=== PATIENT | female | born 1945 | race African-American/Black ===

== ENCOUNTER 2017-05-10 14:16 | Emergency (ER) | payer MEDICARE, BC ==
[2017-05-10] MEDS ORDERED: Adacel (T-DAP) 0.5 ML VIAL ONE (15:45)
--- NOTE | 2017-05-10 15:58 | CT ---
CT HEAD WITHOUT CONTRAST: Technique: Multiple axial tomograms were obtained through the head without IV enhancement. History: Evaluation of fall with injury to head. Comparison: 06-15-16 FINDINGS: Ventricles have normal size and position. There is no evidence of intracranial hemorrhage or mass. N o evidence of infarct. Sinuses and mastoids are well aerated. No evidence of fracture identified. IMPRESSION: No acute finding. POS: [facility]
[2017-05-10] MEDS ORDERED: Ibuprofen 600 MG TAB ONE (15:59)
--- NOTE | 2017-05-10 16:04 | CT ---
CT SCAN FACIAL BONES: 05/10/17 Multiple axial tomograms obtained through facial bones with multiplanar reconstruction. HISTORY: Fall with injury to face. FINDINGS: Nasal bones appear intact. The orbits appear intact. There has been prior sinus surgery with antral meatal windows. The paranasal sinuses are well aerated. There is a 1 cm mucous retention cyst in the floor of the right maxillary antrum. Maxilla appears intact. Zygoma appears intact. Mandible appear s intact. Degenerative changes at the left TMJ noted. IMPRESSION: No evidence of acute facial bone fractures. POS: [facility]
--- NOTE | 2017-05-10 16:13 | RAD ---
FOUR VIEWS LEFT KNEE: Date: 05-10-17 History: Left knee pain. Comparison: 03-05-16 FINDINGS: There has been interval post-surgical changes related to left total knee prosthesis. No hardware com plication is seen. No fracture or dislocation identified. No other osseous abnormality. IMPRESSION: 1. Left total knee prosthesis. 2. No acute osseous abnormality. POS: [facility]
--- NOTE | 2017-05-10 16:16 | CT ---
NONCONTRAST CT CERVICAL SPINE: Date: 05-10-17 History: Injury after a fall. Technique: Contiguous axial CT images were obtained of the cervical spine from the skull base to the level of the T2 vertebral body. Sagittal and coronal reformatted images are provided. FINDINGS: No fracture or subluxation is seen involving the cervical spine. There is straightening of the angie l cervical lordotic curvature which may be related to muscle spasm or positioning. Multilevel degene rative changes are seen in the cervical spine. There is minimal symmetric biapical pleural and parenchymal scarring. There is heterogeneity of the right lobe of the thyroid gland. There is suggestion of a small hypode nse nodule which cannot be further characterized on this exam. Prevertebral soft tissues are within normal limits. IMPRESSION: 1. Multilevel degenerative change of the cervical spine without evidence of fracture or subluxation. 2. Hypodense nodule right lobe of the thyroid gland which cannot be further characterized on this CT scan exam. POS: [facility]
--- NOTE | 2017-05-10 16:22 | RAD ---
PA AND LATERAL CHEST X-RAY 05/10/17 HISTORY: Nausea and vomiting. COMPARISON: 11/20/16 FINDINGS: The cardiac silhouette is magnified by projection. Pulmonary vasculature is within normal limits. Th e lungs are clear. Vascular calcifications seen in the thoracic aorta. IMPRESSION: No acute cardiopulmonary process. POS: [facility]
--- NOTE | 2017-05-10 16:39 | RAD ---
LEFT SHOULDER THREE VIEWS: 05/10/17 INDICATION: Pain. 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 There is punctate density underlying the lateral asp ect of the left acromion which can be seen in the setting of calcific tendinopathy. No fracture or dislocation identified. IMPRESSION: No acute osseous abnormality of the left shoulder. POS: [facility]
== END 2017-05-10 16:03 | disposition home or self-care (01) ==
LOC: SCSER 14:16
DX: S40.012A Contusion of left shoulder, initial encounter (principal); S80.02XA Contusion of left knee, initial encounter; S00.81XA Abrasion of other part of head, initial encounter; E03.9 Hypothyroidism, unspecified; K21.9 Gastro-esophageal reflux disease without esophagitis; J45.909 Unspecified asthma, uncomplicated; I11.0 Hypertensive heart disease with heart failure; I50.9 Heart failure, unspecified; W22.8XXA Striking against or struck by other objects, initial encounter
CPT/HCPCS: 70450; 70486; 71020; 72125; 90471; 90715

== ENCOUNTER 2017-10-28 22:20 | Emergency (ER) | payer MEDICARE, BC ==
[2017-10-28 23:20] LABS: Clarity Clear (Clear); Leukocyte Unable to Interpret (Negative); Nitrite Unable to Interpret (Negative); Protein, Urine (Dipstick) Unable to Interpret mg/dL (Neg-Trace)
[2017-10-28 23:21] LABS: Bilirubin Unable to Interpret (Negative); Blood, Urine Unable to Interpret (Negative); Glucose, Urine (Dipstick) Unable to Interpret mg/dL (Negative); Urobilinogen UNABLE TO INTERPRET mg/dL (0.2-1.0)
[2017-10-28 23:22] LABS: pH, Urine 5.6 (5.0-9.0)
[2017-10-28 23:25] LABS: Bacteria/HPF None Seen HPF (None Seen); Hyaline Casts/LPF 0-3 HYALINE CAST LPF (0-3 Hyaline); RBC/HPF 0-3 HPF (0-3); Squamous Epithelial None Seen HPF (0-3); WBC/HPF None Seen HPF (0-3)
[2017-10-29] MEDS ORDERED: Oxybutynin 5 MG TAB PO SCH (02:00)
[2017-10-29] MEDS ORDERED: Ketorolac Tromethamine 30 MG/ML VIAL ONE (02:57)
== END 2017-10-29 03:20 | disposition home or self-care (01) ==
LOC: ERS 22:20
DX: R30.0 Dysuria (principal); E03.9 Hypothyroidism, unspecified; I11.0 Hypertensive heart disease with heart failure; I50.9 Heart failure, unspecified; J45.909 Unspecified asthma, uncomplicated; K21.9 Gastro-esophageal reflux disease without esophagitis
CPT/HCPCS: 81003; 81015; 96372; J1885

== ENCOUNTER 2017-11-03 08:30 | Outpatient (CLI) | payer MEDICARE, BC ==
[2017-11-03 10:11] LABS: Hemoglobin 11.8 g/dL (12.0-16.0); Mean Corpuscular HGB CONC 31.3 g/dL (32.0-36.0); Mean Corpuscular Hemoglobin 25.7 pg (27.0-31.0); Mean Corpuscular Volume 82.1 fl (81.0-99.0); Mean Platelet Volume 7.7 fL (7.4-10.4); Platelet Count 318 thou/uL (130-400); RBC Distribution Width 14.2 % (11.5-14.5); White Blood Cell (WBC) Count 5.5 thou/uL (4.8-10.8)
[2017-11-03 10:27] LABS: INR-International Normal Ratio 1.1; Prothrombin Time 14.7 SEC (12.0-14.7)
[2017-11-03 10:28] LABS: Anion Gap 11 mmol/L (10-20); BUN (Urea Nitrogen) 20 mg/dL (9.8-20.1); Calc. Creatinine Clearance 0 mL/min (70-130); Calcium 9.1 mg/dL (7.8-10.44); Carbon Dioxide 30 mmol/L (23-31); Chloride 103 mmol/L (98-107); Estimated GFR-MDRD Greater than 90; Glucose 84 mg/dL (83-110); Potassium 4.1 mmol/L (3.5-5.1); Sodium 140 mmol/L (136-145)
--- NOTE | 2017-11-04 06:23 | EKG ---
Test Reason : Blood Pressure : / mmHG Vent. Rate : 054 BPM Atrial Rate : 054 BPM P-R Int : 204 ms QRS Dur : 074 ms QT Int : 438 ms P-R-T Axes : 053 056 037 degrees QTc Int : 415 ms Sinus bradycardia Cannot rule out Anteroseptal infarct (cited on or before 05-MAY-2012)(Doubtful) Abnormal ECG When compared with ECG of 20-NOV-2016 08:31, Questionable change in initial forces of Anterior leads Confirmed by MELISSA APONTE ([id number]) on 11/04/2017 6:12:14 AM Referred By: ANIL Confirmed By:MELISSA APONTE
== END 2017-11-03 08:31 | disposition home or self-care (01) ==
LOC: LABBT 08:30
PROVIDERS: ATTEND Urology
DX: Z01.818 Encounter for other preprocedural examination (principal); N35.9 Urethral stricture, unspecified; R31.29 Other microscopic hematuria
CPT/HCPCS: 80048; 85027; 85610; 85730; 93005; 93010

== ENCOUNTER 2017-11-04 07:58 | Outpatient (CLI) | payer MEDICARE, BC ==
--- NOTE | 2017-11-04 09:54 | ULT ---
RENAL ULTRASOUND: COMPARISON: None. HISTORY: Bladder spasms and frequent urination for a month. Microhematuria. TECHNIQUE: Multiplanar, escalona scale, and color Doppler images were obtained in a renal ultrasound. FINDINGS: The kidneys are normal in echogenicity without focal lesions, hydronephrosis, or calculi and measure 10.7 and 11.2 cm in length on the right and left, respectively. Limited visualization of the urinary bladder is unremarkable. IMPRESSION: Unremarkable renal ultrasound. POS: [facility]
== END 2017-11-04 07:59 | disposition home or self-care (01) ==
LOC: ULT 07:58
PROVIDERS: ATTEND Urology
DX: R31.9 Hematuria, unspecified (principal)
CPT/HCPCS: 76770

== ENCOUNTER 2017-11-08 08:51 | Day surgery (SDC) | payer MEDICARE, BC ==
[2017-11-03 08:37] VITALS: BMI 36.9
[2017-11-08] MEDS ORDERED: cefTRIAXone\\ROCEPHIN 2 GM in Sodium Chloride 0.9% 100 ML IVPB SCH (09:15)
[2017-11-08] MEDS ORDERED: Ondansetron ODT 4 MG TAB ONE (10:26)
[2017-11-08] MEDS ORDERED: Iothalamate Meglumine 60% 50 ML VIAL FS ONE (11:14)
[2017-11-08] MEDS ORDERED: Fentanyl 100 MCG/2 ML VIAL ONE (11:18)
[2017-11-08] MEDS ORDERED: Famotidine/PF 20 mg/2ml Vial ONE (11:18)
--- NOTE | 2017-11-08 12:27 | RAD ---
RETROGRADE IVP: COMPARISON: None. HISTORY: Microhematuria. FINDINGS/IMPRESSION: Multiple limited intraoperative fluoroscopic views from a retrograde IVP were submitted for interpret ation. No calcifications are seen on the metal worker film. Contrast is eventually instilled into both kyle al collecting systems. No filling defects are seen. No hydronephrosis is seen. POS: [facility]
[2017-11-08] MEDS ORDERED: Ondansetron HCl/PF 4 MG/2 ML Vial ONE (16:02)
[2017-11-08] MEDS ORDERED: Glycopyrrolate 0.2 MG/ML 5 ML SYRINGE ONE (16:02)
[2017-11-08] MEDS ORDERED: PROPOFOL 200 MG/20 ML VIAL ONE (16:02)
--- NOTE | 2017-11-09 09:06 | OP ---
DATE OF PROCEDURE: 11/08/2017 PREOPERATIVE DIAGNOSES: Microscopic hematuria and history of urethral stenosis, and some lower urina ry tract symptoms. PROCEDURE PERFORMED: Cystoscopy and bilateral retrograde and urethral dilatation. SURGEON: Dr. Lefty Kirkpatrick. ANESTHETIC: General. ESTIMATED BLOOD LOSS: Minimal. FINDINGS: She had mild urethral stenosis 17 Bulgarian sheath passed easily, which was gently dila italo to 28-Bulgarian sheath. The bladder showed no tumor, foreign body, or stone. Retrograde studies we re normal. She has a fairly well supported bladder neck. There is no urethral mass or diverticulum. OPERATIVE TECHNIQUE: After obtaining written and verbal consent from the patient after receiving IV antibiotics because of knee replacement. She was taken the operative suite. She was placed i n the supine position on the treatment table. PlexiPulses were placed on her lower extremities and t urned on. She was given a general anesthetic and initially in oral obturator and then switched to en dotracheal intubation as she was coughing with the obturator in. She was then placed in the dorsal l ithotomy position and sterilely prepped and draped. Cystoscopy was initially attempted with a 17-Jatinder nch sheath and went fairly easily through the urethra. The bladder was filled and emptied 3 times. It was examined with both a 30 and the 70-degree lenses. We then went ahead and gently dilated to 28 Bulgarian with female sounds. We then brought in a 22-Bulgarian sheath and A landscape horticulture instructor KUB was taken with the fluoroscopy unit. We then did bilateral retrograde studies using a 5-Bulgarian cone tip catheter, inje cting contrast about 12 mL up the right ureter and then about 12 mL of the left including drainage fr om a few minutes later. There were no persistent abnormalities or filling defects or areas of obstru ction or extravasation noted. At this point, the bladder was drained, the instruments were removed. The patient was awakened and extubated and taken by stretcher to the recovery room.
== END 2017-11-08 15:30 | disposition home or self-care (01) ==
LOC: SDC 08:51
PROVIDERS: ATTEND Urology
PROC: 0T7D8ZZ Dilation of Urethra, Via Natural or Artificial Opening Endoscopic (ICD-10-PCS; principal; 2017-11-08)
DX: N35.9 Urethral stricture, unspecified (principal); R31.29 Other microscopic hematuria; R39.9 Unspecified symptoms and signs involving the genitourinary system; Z88.5 Allergy status to narcotic agent
CPT/HCPCS: 74420; J0696; J2405; J2704; J3010; J3370; J7050; Q0162; Q9961; S0028

== ENCOUNTER 2018-03-23 06:57 | Outpatient (CLI) | payer MEDICARE, BC | END 2018-03-23 06:58 | disposition home or self-care (01) | LOC: BICULT 06:57 | PROVIDERS: ATTEND Otolaryngology Plastic Surgery within the Head & Neck | DX: E04.1 Nontoxic single thyroid nodule (principal); R13.13 Dysphagia, pharyngeal phase; E07.9 Disorder of thyroid, unspecified | CPT/HCPCS: 76536 ==

== ENCOUNTER 2018-04-04 08:42 | Outpatient (CLI) | payer MEDICARE, BC ==
--- NOTE | 2018-04-05 15:34 | RAD ---
MODIFIED BARIUM SWALLOW IN THE PRESENCE SPEECH PATHOLOGIST: 04/05/18 HISTORY: Dysphagia unspecified. Feeding difficulties. EXPOSURE: 31.45 mGy. FINDINGS: The patient was administered puree, thin liquid, mechanical soft and regular texture consistencies. T he patient was also administered a barium tablet. There is no evidence of penetration or aspiration. Please refer to speech pathologist report for feed ing recommendations. Speech pathologist states that the patient had a choking sensation and persistent pressure. Cervical esophagram can be performed nonemergently to better evaluate the cervical esophagus. IMPRESSION: As above. POS: [facility]
== END 2018-04-04 08:43 | disposition home or self-care (01) ==
PROVIDERS: ATTEND Otolaryngology Plastic Surgery within the Head & Neck
DX: R13.10 Dysphagia, unspecified (principal); R63.3 Feeding difficulties; R09.89 Other specified symptoms and signs involving the circulatory and respiratory systems
CPT/HCPCS: 74230; G8996-GN-CI; G8997-GN-CI; G8998-GN-CI

== ENCOUNTER 2018-04-14 07:42 | Outpatient (CLI) | payer MEDICARE, BC ==
--- NOTE | 2018-04-14 11:04 | RAD ---
BARIUM SWALLOW: DATE: 04/14/18. COMPARISON: None. HISTORY: Dysphagia. FINDINGS: A double-contrast barium esophagram is performed. There are numerous tertiary contractions noted during this examination involving the entirety of the esophagus, most prominent in the mid and distal esophagus. There is a prominent cricopharyngeal bar with a small Zenker's diverticulum noted on lateral imaging. There is a small sliding-type hiatal hernia. The patient ingested a barium tablet which traverses th e gastroesophageal junction without delay. Secondary to tertiary contractions, peristalsis of the ta blet was somewhat delayed. No mucosal mass lesion. Destination Imagination Coordinator imaging demonstrates no evidence for acute cardiopulmonary disease. IMPRESSION: Numerous tertiary contractions are noted within the esophagus with slight discoordination of transit of the barium tablet. Small sliding-type hiatal hernia. Prominent cricopharyngeal bar with small Ze nker's diverticulum. POS: [facility]
== END 2018-04-14 07:43 | disposition home or self-care (01) ==
LOC: RAD 07:42
PROVIDERS: ATTEND Otolaryngology Plastic Surgery within the Head & Neck
DX: E04.1 Nontoxic single thyroid nodule (principal); R13.13 Dysphagia, pharyngeal phase; K22.5 Diverticulum of esophagus, acquired; K44.9 Diaphragmatic hernia without obstruction or gangrene; K22.9 Disease of esophagus, unspecified
CPT/HCPCS: 74220

== ENCOUNTER 2018-11-28 14:08 | Outpatient (CLI) | payer MEDICARE, BC ==
--- NOTE | 2018-11-28 15:32 | MMO ---
Bilateral MAMMO Bilat Screen [facility]DI+ELISSA. CLINICAL HISTORY: Patient is 73 years old and is seen for screening. The patient has the following family history of breast cancer: mother, at age 83. The patient has no personal history of cancer. The patient has a history of bilateral Cyst Aspiration in ? - benign. VIEWS: The views performed were: bilateral craniocaudal with tomosynthesis and bilateral mediolateral oblique with tomosynthesis. FILMS COMPARED: The present examination has been compared to prior imaging studies performed at [facility] on 04/29/2004, 05/12/2004, 07/01/2010, 11/11/2011 and 12/16/2012. MAMMOGRAM FINDINGS: There are scattered fibroglandular densities. Finding 1: There are stable benign appearing densities seen in both breasts. Finding 2: There are stable benign appearing calcifications seen in both breasts. There are no suspicious masses, suspicious calcifications, or new areas of architectural distortion. IMPRESSION: THERE IS NO MAMMOGRAPHIC EVIDENCE OF MALIGNANCY. A ROUTINE FOLLOW-UP MAMMOGRAM IN 1 YEAR IS RECOMMENDED. THE RESULTS OF THIS EXAM WERE SENT TO THE PATIENT. ACR BI-RADS Category 2 - Benign finding MAMMOGRAPHY NOTE: 1. A negative mammogram report should not delay a biopsy if a dominant of clinically suspicious mass is present. 2. Approximately 10% to 15% of breast cancers are not detected by mammography. 3. Adenosis and dense breasts may obscure an underlying neoplasm.
== END 2018-11-28 14:09 | disposition home or self-care (01) ==
LOC: BICMAMMO 14:08
PROVIDERS: ATTEND Internal Medicine
DX: Z12.31 Encounter for screening mammogram for malignant neoplasm of breast (principal); Z80.3 Family history of malignant neoplasm of breast
CPT/HCPCS: 77063; 77067

== ENCOUNTER 2019-01-03 07:24 | Outpatient (CLI) | payer MEDICARE, BC ==
--- NOTE | 2019-01-03 08:38 | CT ---
CT abdomen and pelvis with IV and oral contrast HISTORY: Nausea. Periumbilical pain. Altered bowel function. COMPARISON: 06/25/2012. FINDINGS: Minimal atelectasis at the posterior lung bases. Cysts within the liver and kidneys are sta ble. Degenerative changes lumbar spine. Calcification throughout the arterial structures. Appendix is not inflamed. No evidence of bowel obstruction. Extensive diverticula arise from the colo n. No associated inflammation. Deep within the left posterior left side of the pelvis, just inside the osseous structures at the lev el of the posterior acetabulum, a bilobed well-circumscribed cystic lesion is 2.8 cm length by 1.9 cm width by 1.8 cm greatest depth. There is a small associated dystrophic calcification. No invasion of the adjacent structures. No free fluid is apparent. While this lesion demonstrates no aggressive characteristics, it was not present on the prior exam from 2011. IMPRESSION: Diverticulosis. No evidence of diverticulitis. No evidence of bowel obstruction or inflam mation. New bilobed benign-appearing cystic lesion within the left lower posterior pelvis. While it demonstra bryson no aggressive characteristics, it is new since the 2012 study. Follow-up is therefore warranted. Please consider CT pelvis in 9-12 months to evaluate for stability. Atherosclerosis.
== END 2019-01-03 07:25 | disposition home or self-care (01) ==
LOC: BICCT 07:24
PROVIDERS: ATTEND Physician Assistant Medical
DX: K21.9 Gastro-esophageal reflux disease without esophagitis (principal); R10.33 Periumbilical pain; R11.0 Nausea; R19.4 Change in bowel habit; K57.90 Diverticulosis of intestine, part unspecified, without perforation or abscess without bleeding; I70.90 Unspecified atherosclerosis
CPT/HCPCS: 74177

== ENCOUNTER 2019-03-06 08:27 | Outpatient (CLI) | payer MEDICARE, BC ==
--- NOTE | 2019-03-06 09:21 | CT ---
EXAM: CT angiogram abdomen with IV contrast and 3-D reconstructions PROVIDED CLINICAL HISTORY: Having abdominal pain for months. Evaluate mesenteric arteries. COMPARISON: CT abdomen and pelvis on 01/03/2019 FINDINGS: There is bibasilar atelectasis. Calcified lymph node is seen in a left periaortic location the lower mediastinum. The heart is mildly enlarged. Hypodense hepatic lesions are again seen scattered throughout each lobe of the liver which were also seen on a prior CT exam in 2012 and are likely related to multiple hepatic cysts. Subcentimeter too small to characterize hypodense lesions are again seen in each kidney statistically likely representing cysts. The spleen and pancreas demonstrate a normal CT appearance. The adrenal glands are mildly thickened bilaterally which is a symmetric finding, and this is also st able compared to prior studies and likely due to adrenal hyperplasia. No adrenal nodule is seen. Vascular calcifications are seen in the abdominal aorta and involving the visualized iliac arteries. The celiac artery has a downgoing trajectory likely due to arcuate ligament with mild narrowing of the proximal celiac artery. The superior mesenteric artery is widely patent. The origin of the VAL is not well visualized due to dense vascular calcifications in the abdominal aorta but otherwise appears grossly patent. There is a single patent left renal artery. There is a single right renal artery with calcified ather osclerotic plaque present resulting in at least mild narrowing, but the origin and proximal right renal artery are partially obscured due to dense vascular calcifications. Dense vascular calcific lesions involve the common iliac arteries without significant focal stenosis appreciated. There is colonic diverticulosis seen diffusely throughout the visualized colon. The visualized ascend ing colon as well as transverse colon demonstrate what appears to be wall thickening, but the colon is completely decompressed in these regions which may account for this finding. No pericolonic inflam matory changes are seen. Loops of small bowel are normal in caliber. Small fat-containing umbilical hernia is present. Degenerative changes are seen in the spine. IMPRESSION: 1. Widely patent superior mesenteric artery. 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 The origin of the VAL is obscured due to vascular calcifications in the abdominal aorta. 2. Vascular calcifications in the proximal right renal artery limiting evaluation. Left renal artery is patent. 3. Mild cardiomegaly. 4. Multiple hepatic cysts. 5. Subcentimeter too small to characterize hypodense bilateral renal lesions statistically likely rep resenting cysts. 6. Colonic diverticulosis. There is suggested thickening of the clark of the ascending and transverse colon, but this is thought to most likely be related to incomplete distention as opposed to colitis. No pericolonic inflammatory changes are present.
[2019-03-06] MEDS ORDERED: ISOVUE-370 76%-LOCM 1 ML ONE (16:23)
== END 2019-03-06 08:28 | disposition home or self-care (01) ==
LOC: BICCT 08:27
PROVIDERS: ATTEND Internal Medicine Gastroenterology
DX: R10.33 Periumbilical pain (principal); R10.13 Epigastric pain; I70.0 Atherosclerosis of aorta; N28.89 Other specified disorders of kidney and ureter; I51.7 Cardiomegaly; K76.89 Other specified diseases of liver; K57.30 Diverticulosis of large intestine without perforation or abscess without bleeding; R93.421 Abnormal radiologic findings on diagnostic imaging of right kidney; R93.422 Abnormal radiologic findings on diagnostic imaging of left kidney
CPT/HCPCS: 74175; Q9966

== ENCOUNTER 2019-05-30 07:38 | Emergency (ER) | payer MEDICARE, BC ==
[2019-05-30] MEDS ORDERED: Ketorolac Tromethamine 30 MG/ML VIAL ONE (08:23)
[2019-05-30] MEDS ORDERED: Cyclobenzaprine 10 MG TAB ONE (08:23)
--- NOTE | 2019-05-30 09:46 | CT ---
CERVICAL SPINE CT: Date: 05/30/19 CLINICAL HISTORY: Emergency exam, neck pain. FINDINGS: Moderate multilevel degenerative change of the cervical spine is present. there is reversal of normal cervical curvature, with focal kyphosis centered at the C4 level. Multilevel disc osteophyte complex formation, as well as calcified disc bulges and disc protrusions are present, resulting in multileve l moderate central canal stenosis. There is multilevel uncinate process and facet hypertrophy resulti ng in osseous compromise of the neural foramina. Findings are limited on the basis of noncontrast CT imaging. No acute craniocervical distraction injury. No fracture of the cervical spine visualized. Incidental note of hypertrophy and heterogeneity of the right thyroid lobe and absence of a visualized left thyr oid lobe. IMPRESSION: Multilevel prominent degenerative change throughout the cervical spine. No acute fracture visualized. POS: [facility]
== END 2019-05-30 09:36 | disposition home or self-care (01) ==
LOC: ERS 07:38
DX: M54.2 Cervicalgia (principal); E03.9 Hypothyroidism, unspecified; K21.9 Gastro-esophageal reflux disease without esophagitis; J45.909 Unspecified asthma, uncomplicated; I11.0 Hypertensive heart disease with heart failure; I50.9 Heart failure, unspecified; Z79.899 Other long term (current) drug therapy; Z79.51 Long term (current) use of inhaled steroids
CPT/HCPCS: 72126; 96372; J1885

== ENCOUNTER 2019-08-03 09:46 | Outpatient (CLI) | payer MEDICARE, BC ==
[2019-08-03 11:14] LABS: #Eosinphils 0.1 thou/uL (0.0-0.7); #Lymphocytes 1.1 thou/uL (1.20-3.40); #Monocytes 0.5 thou/uL (0.11-0.59); #Neutrophils 3.2 thou/uL (1.40-6.50); %Basophils 0.5 % (0.0-1.0); %Eosinophils 1.7 % (0.0-10.0); %Lymphocytes 22.5 % (21.0-51.0); %Neutrophils 65.2 % (42.0-75.0); Mean Corpuscular HGB CONC 31.3 g/dL (32.0-36.0); Mean Corpuscular Hemoglobin 25.3 pg (27.0-31.0); Mean Platelet Volume 7.8 fL (7.4-10.4); Platelet Count 321 thou/uL (130-400); RBC Distribution Width 12.8 % (11.5-14.5); Red Blood Cell (RBC) Count 4.74 mill/uL (4.20-5.40); White Blood Cell (WBC) Count 4.9 thou/uL (4.8-10.8)
[2019-08-03 11:33] LABS: ALT (SGPT) 9 U/L (8-55); AST (SGOT) 13 U/L (5-34); Albumin 3.8 g/dL (3.4-4.8); Alkaline Phosphatase 97 U/L (40-110); Anion Gap 12 mmol/L (10-20); BUN (Urea Nitrogen) 17 mg/dL (9.8-20.1); Bilirubin, Total 0.2 mg/dL (0.2-1.2); Calc. Creatinine Clearance 0 mL/min (70-130); Carbon Dioxide 31 mmol/L (23-31); Chloride 103 mmol/L (98-107); Estimated GFR-MDRD 88; Globulin 2.9 g/dL (2.4-3.5); Glucose 92 mg/dL (83-110); Potassium 3.9 mmol/L (3.5-5.1); Protein, Total 6.7 g/dL (6.0-8.3); Sodium 142 mmol/L (136-145)
== END 2019-08-03 09:47 | disposition home or self-care (01) ==
LOC: LABBT 09:46
PROVIDERS: ATTEND Internal Medicine Cardiovascular Disease
DX: Z01.812 Encounter for preprocedural laboratory examination (principal); R07.9 Chest pain, unspecified
CPT/HCPCS: 80053; 85025

== ENCOUNTER 2019-08-07 05:39 | Day surgery (SDC) | payer MEDICARE, BC ==
[2019-08-03 10:13] VITALS: BMI 37.9
[2019-08-07] MEDS ORDERED: Diazepam 5 MG TAB ONE (06:15)
[2019-08-07] MEDS ORDERED: Heparin 10,000 UNITS/1 ML VIAL ONE (06:39)
[2019-08-07] MEDS ORDERED: Heparin (Artline) 1,000 ML ONE (06:39)
[2019-08-07] MEDS ORDERED: Verapamil 5 MG/2 ML VIAL ONE (06:39)
[2019-08-07] MEDS ORDERED: Nitroglycerin 100MG/250ML BOT 250 ML ONE (06:39)
[2019-08-07] MEDS ORDERED: Lidocaine 1% (PF) 30 ML VIAL ONE (06:41)
[2019-08-07] MEDS ORDERED: Midazolam HCl 2 mg/2 ml Vial ONE (07:15)
[2019-08-07] MEDS ORDERED: Fentanyl 100 MCG/2 ML VIAL ONE (07:16)
[2019-08-07] MEDS ORDERED: Iopamidol 370 76% 100 ML VIAL ONE (11:23)
== END 2019-08-07 10:58 | disposition home or self-care (01) ==
LOC: CCL 05:39
PROVIDERS: ATTEND Internal Medicine Cardiovascular Disease
PROC: 4A023N7 Measurement of Cardiac Sampling and Pressure, Left Heart, Percutaneous Approach (ICD-10-PCS; principal; 2019-08-07)
PROC: B2111ZZ Fluoroscopy of Multiple Coronary Arteries using Low Osmolar Contrast (ICD-10-PCS; 2019-08-07)
PROC: B2151ZZ Fluoroscopy of Left Heart using Low Osmolar Contrast (ICD-10-PCS; 2019-08-07)
DX: I25.10 Atherosclerotic heart disease of native coronary artery without angina pectoris (principal); I11.0 Hypertensive heart disease with heart failure; I50.32 Chronic diastolic (congestive) heart failure; I87.2 Venous insufficiency (chronic) (peripheral); G47.33 Obstructive sleep apnea (adult) (pediatric); Z79.899 Other long term (current) drug therapy; Z88.5 Allergy status to narcotic agent; Z99.89 Dependence on other enabling machines and devices
CPT/HCPCS: 93458; 99152; C1769; J1644; J2001; J2250; J3010; Q9967

== ENCOUNTER 2019-10-24 01:44 | Emergency (ER) | payer MEDICARE, BC ==
[2019-10-24 02:20] LABS: #Basophils 0.1 thou/uL (0.0-0.2); #Eosinphils 0.2 thou/uL (0.0-0.7); #Lymphocytes 2.1 thou/uL (1.20-3.40); #Monocytes 0.8 thou/uL (0.11-0.59); #Neutrophils 3.9 thou/uL (1.40-6.50); %Basophils 1.2 % (0.0-1.0); %Eosinophils 2.4 % (0.0-10.0); %Lymphocytes 29.8 % (21.0-51.0); %Monocytes 11.1 % (0.0-10.0); %Neutrophils 55.5 % (42.0-75.0); Hemoglobin 11.4 g/dL (12.0-16.0); Mean Corpuscular HGB CONC 32.7 g/dL (32.0-36.0); Mean Corpuscular Hemoglobin 26.8 pg (27.0-31.0); Mean Corpuscular Volume 81.9 fL (78.0-98.0); Mean Platelet Volume 7.7 fL (7.4-10.4); Platelet Count 343 thou/uL (130-400); RBC Distribution Width 13.7 % (11.5-14.5); Red Blood Cell (RBC) Count 4.26 mill/uL (4.20-5.40)
[2019-10-24 02:46] LABS: ALT (SGPT) 9 U/L (8-55); AST (SGOT) 14 U/L (5-34); Albumin 3.6 g/dL (3.4-4.8); Alkaline Phosphatase 87 U/L (40-110); Anion Gap 11 mmol/L (10-20); BUN (Urea Nitrogen) 18 mg/dL (9.8-20.1); Bilirubin, Total 0.2 mg/dL (0.2-1.2); Calc. Creatinine Clearance 0 mL/min (70-130); Carbon Dioxide 31 mmol/L (23-31); Chloride 102 mmol/L (98-107); Estimated GFR-MDRD 53; Globulin 3.1 g/dL (2.4-3.5); Glucose 95 mg/dL (83-110); Potassium 3.4 mmol/L (3.5-5.1); Protein, Total 6.7 g/dL (6.0-8.3); Sodium 141 mmol/L (136-145)
--- NOTE | 2019-10-24 07:41 | RAD ---
PORTABLE CHEST 1 VIEW: DATE: 10/24/2019. TIME: 2:12 AM. HISTORY: Dizziness, low back pressure. COMPARISON: 11/20/2016. FINDINGS/IMPRESSION: The heart size is enlarged. The aorta is tortuous. There is mild prominence of the pulmonary vascul arity without lobar consolidation, pneumothoraces, or large effusions. POS: [facility]
== END 2019-10-24 05:31 | disposition home or self-care (01) ==
LOC: ERS 01:44
DX: R42 Dizziness and giddiness (principal); E03.9 Hypothyroidism, unspecified; K21.9 Gastro-esophageal reflux disease without esophagitis; J45.909 Unspecified asthma, uncomplicated; I11.0 Hypertensive heart disease with heart failure; I50.9 Heart failure, unspecified; Z79.899 Other long term (current) drug therapy
CPT/HCPCS: 71045; 80053; 85025; 93005; 96360; 96361

== ENCOUNTER 2019-11-30 20:56 | Observation (INO) | payer MEDICARE, BC ==
[2019-11-30 21:22] LABS: #Basophils 0.1 thou/uL (0.0-0.2); #Eosinphils 0.1 thou/uL (0.0-0.7); #Lymphocytes 1.7 thou/uL (1.20-3.40); #Monocytes 0.6 thou/uL (0.11-0.59); #Neutrophils 5.3 thou/uL (1.40-6.50); %Basophils 0.8 % (0.0-1.0); %Eosinophils 1.8 % (0.0-10.0); %Lymphocytes 21.9 % (21.0-51.0); %Neutrophils 67.5 % (42.0-75.0); Mean Corpuscular HGB CONC 31.2 g/dL (32.0-36.0); Mean Corpuscular Volume 83.2 fL (78.0-98.0); Mean Platelet Volume 7.8 fL (7.4-10.4); Platelet Count 359 thou/uL (130-400); RBC Distribution Width 13.7 % (11.5-14.5); Red Blood Cell (RBC) Count 4.62 mill/uL (4.20-5.40); White Blood Cell (WBC) Count 7.9 thou/uL (4.8-10.8)
[2019-11-30 21:47] LABS: ALT (SGPT) 10 U/L (8-55); AST (SGOT) 13 U/L (5-34); Albumin 3.9 g/dL (3.4-4.8); Alkaline Phosphatase 96 U/L (40-110); Anion Gap 13 mmol/L (10-20); BUN (Urea Nitrogen) 17 mg/dL (9.8-20.1); Bilirubin, Total 0.2 mg/dL (0.2-1.2); Calc. Creatinine Clearance 0 mL/min (70-130); Calcium 9.2 mg/dL (7.8-10.44); Carbon Dioxide 28 mmol/L (23-31); Chloride 102 mmol/L (98-107); Estimated GFR-MDRD 60; Glucose 94 mg/dL (83-110); Potassium 3.8 mmol/L (3.5-5.1); Protein, Total 6.9 g/dL (6.0-8.3); Sodium 139 mmol/L (136-145)
[2019-11-30] MEDS ORDERED: Nitroglycerin 0.4 MG TAB (25 Tab Bottle) PO PRN (23:44)
[2019-11-30] MEDS ORDERED: Sodium Chloride 0.9% 1,000 ML IV SCH (23:45)
--- NOTE | 2019-12-01 00:07 | PDOC.HHP ---
Hospitalist HPI - History of Present Illness Chest Pain History of Present Illness: Patient reports having intermittent chest pain since she woke up this morning while she was in bed. Has not taken anything for it. She denies any associated nausea/vomiting, diaphoresis or sob. Denies any cough. Her eyes have been itching due to allergies. Denies any fever. Pain is non-radiating, states it is a 7/10 in severity. She opted to come in due to concern for her heart. 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 She had a cath in 07/2019 which showed 30% stenosis at distal LAD, mid RCA and distal RCA. ED Course: EKG showed NSR. HR 74. No ST changes. initial trop negative. CXR done, per Dr. Omalley unremarkable. Low grade temp on arrival (99.0). Hospitalist ROS - Review of Systems Constitutional: denies: fever, chills, sweats, weakness, malaise, other Eyes: denies: pain, vision change, conjunctivae inflammation, eyelid inflammation, redness, other ENT: denies: ear pain, ear discharge, nose pain, nose discharge, nose congestion , mouth pain, mouth swelling, throat pain, throat swelling, other Respiratory: denies: cough, dry, shortness of breath, hemoptysis, SOB with excertion, pleuritic pain, sputum, wheezing, other Cardiovascular: reports: chest pain. denies: palpitations, orthopnea, paroxysmal noc. dyspnea, edema, light headedness, other Gastrointestinal: denies: nausea, vomiting, abdominal pain, diarrhea, constipation, melena, hematochezia, other Genitourinary: denies: dysuria, frequency, incontinence, hematuria, retention, other Musculoskeletal: reports: leg pain (chronic leg swelling, intermittent), foot pain (reports recent issues with cramping in both feet.). denies: neck pain, shoulder pain, arm pain, back pain, hand pain, other Skin: denies: rash, lesions, aydee, bruising, other Neurological: denies: weakness, numbness, incoordination, change in speech, confusion, seizures, other - Medication Medications: ALLERGIES: Codeine sulfate. CURRENT MEDICATIONS: 1. Benicar. 2. Potassium. 3. Amlodipine. 4. Synthroid. 5. HCTZ. 6. Albuterol. 7. Vitamin D3. Hospitalist History - Past Medical History Cardiac: reports: CHF, HTN Pulmonary: reports: asthma Gastrointestinal: reports: Diverticulosis, GERD Endocrine: reports: Hypothyroidism - Past Surgical History Past Surgical History: reports: Hysterectomy, Total Knee Replacement (right knee ), Tonsillectomy, Other (Partial thyroidectomy Bilateral knee surgery Bilateral foot surgery Sinus surgery Bladder surgery) - Family History Family History: reports: no pertinent history - Social History Smoking Status: Never smoker Alcohol: reports: None Drugs: reports: none Living Situation: With Family Activity level: independent ambulation - Exam General Appearance: NAD Eye: PERRL, anicteric sclera ENT: normocephalic atraumatic, moist mucosa Neck: supple, no lymphadenopathy Heart: RRR, no murmur, normal peripheral pulses Heart - other findings: reproducible pain to left sternal border with palpation Respiratory: CTAB, no wheezes, no rales, no ronchi, normal chest expansion, no tachypnea Gastrointestinal: soft, non-tender, non-distended, normal bowel sounds, no guarding, no rigidity Extremities: no edema Extremities - other findings: bilateral leg swelling L>R Skin: normal turgor, no rashes Neurological: cranial nerve grossly intact, normal sensation to touch, no weakness Musculoskeletal: normal tone, normal strength, no muscle wasting Psychiatric: normal affect, normal behavior, A&O x 3 Hospitalist Results - Labs Result Diagrams: 11/30/19 21:12 11/30/19 21:12 Lab results: WBC 7.9 thou/uL (4.8-10.8) 11/30/19 21:12 Hgb 12.0 g/dL (12.0-16.0) 11/30/19 21:12 Hct 38.5 % (36.0-47.0) 11/30/19 21:12 MCV 83.2 fL (78.0-98.0) 11/30/19 21:12 Plt Count 359 thou/uL (130-400) 11/30/19 21:12 Neutrophils % 67.5 % (42.0-75.0) 11/30/19 21:12 Sodium 139 mmol/L (136-145) 11/30/19 21:12 Potassium 3.8 mmol/L (3.5-5.1) 11/30/19 21:12 Chloride 102 mmol/L (98-107) 11/30/19 21:12 Carbon Dioxide 28 mmol/L (23-31) 11/30/19 21:12 BUN 17 mg/dL (9.8-20.1) 11/30/19 21:12 Creatinine 1.08 mg/dL (0.6-1.1) 11/30/19 21:12 Glucose 94 mg/dL (83-110) 11/30/19 21:12 Calcium 9.2 mg/dL (7.8-10.44) 11/30/19 21:12 Total Bilirubin 0.2 mg/dL (0.2-1.2) 11/30/19 21:12 AST 13 U/L (5-34) 11/30/19 21:12 ALT 10 U/L (8-55) 11/30/19 21:12 Alkaline Phosphatase 96 U/L (40-110) 11/30/19 21:12 Troponin I Less than 0.010 ng/mL (< 0.028) 11/30/19 21:12 Serum Total Protein 6.9 g/dL (6.0-8.3) 11/30/19 21:12 Albumin 3.9 g/dL (3.4-4.8) 11/30/19 21:12 Hospitalist H&P A/P - Problem (1) CHF (congestive heart failure) Code(s): I50.9 - HEART FAILURE, UNSPECIFIED Status: Acute (2) Chest pain Code(s): R07.9 - CHEST PAIN, UNSPECIFIED Status: Acute Qualifiers: Chest pain type: other chest pain Qualified Code(s): R07.89 - Other chest pain; R07.8 - Other chest pain (3) Asthma Code(s): J45.909 - UNSPECIFIED ASTHMA, UNCOMPLICATED Status: Chronic Qualifiers: Asthma severity: mild intermittent (4) GERD (gastroesophageal reflux disease) Code(s): K21.9 - GASTRO-ESOPHAGEAL REFLUX DISEASE WITHOUT ESOPHAGITIS Status: Chronic Qualifiers: Esophagitis presence: esophagitis presence not specified Qualified Code(s) : K21.9 - Gastro-esophageal reflux disease without esophagitis (5) HTN (hypertension) Code(s): I10 - ESSENTIAL (PRIMARY) HYPERTENSION Status: Chronic Qualifiers: Hypertension type: essential hypertension Qualified Code(s): I10 - Essential (primary) hypertension (6) Hypothyroidism Code(s): E03.9 - HYPOTHYROIDISM, UNSPECIFIED Status: Chronic Qualifiers: Hypothyroidism type: unspecified Qualified Code(s): E03.9 - Hypothyroidism , unspecified (7) Obesity Code(s): E66.9 - OBESITY, UNSPECIFIED Status: Chronic Qualifiers: Obesity type: unspecified obesity type - Plan Plan: Cardiac monitoring. Continue to trend troponin. Will add venous doppler given leg swelling. Cardiology consult, given recent cath done in 07/2019. NPO at midnight. Monitor BP. Reconcile home medications once verified. Gentle IV hydration, given history of CHF. Check BNP, Mg+, TSH. UA/UCx, given low grade fever in ED (99). Add lactic acid/procalcitonin. Walking Program consulted. GI Prophylaxis: Famotidine. CODE STATUS: FULL Surrogate Decision maker: Her , Lefty Burgess.
[2019-12-01] MEDS ORDERED: Acetaminophen 325 MG TAB PO PRN (01:16)
[2019-12-01 01:24] LABS: Lactic Acid 0.9 mmol/L (0.5-2.2)
[2019-12-01 01:41] VITALS: BMI 37.3
[2019-12-01] MEDS ORDERED: tiZANidine HCl 4 MG TAB PO PRN (03:21)
[2019-12-01] MEDS ORDERED: Albuterol Sulfate 2.5 mg/3 ml Neb NEB PRN (03:45)
[2019-12-01 04:34] LABS: #Eosinphils 0.1 thou/uL (0.0-0.7); #Lymphocytes 2.4 thou/uL (1.20-3.40); #Monocytes 0.7 thou/uL (0.11-0.59); #Neutrophils 4.3 thou/uL (1.40-6.50); %Basophils 0.5 % (0.0-1.0); %Eosinophils 1.7 % (0.0-10.0); %Lymphocytes 31.8 % (21.0-51.0); %Monocytes 8.7 % (0.0-10.0); %Neutrophils 57.3 % (42.0-75.0); Hemoglobin 11.8 g/dL (12.0-16.0); Mean Corpuscular HGB CONC 32.2 g/dL (32.0-36.0); Mean Corpuscular Hemoglobin 26.9 pg (27.0-31.0); Mean Corpuscular Volume 83.4 fL (78.0-98.0); Mean Platelet Volume 7.8 fL (7.4-10.4); Platelet Count 319 thou/uL (130-400); RBC Distribution Width 13.6 % (11.5-14.5); Red Blood Cell (RBC) Count 4.39 mill/uL (4.20-5.40); White Blood Cell (WBC) Count 7.5 thou/uL (4.8-10.8)
[2019-12-01 04:47] LABS: Anion Gap 13 mmol/L (10-20); BUN (Urea Nitrogen) 20 mg/dL (9.8-20.1); Calc. Creatinine Clearance 87 mL/min (70-130); Carbon Dioxide 31 mmol/L (23-31); Chloride 103 mmol/L (98-107); Estimated GFR-MDRD 69; Glucose 90 mg/dL (83-110); Potassium 4.1 mmol/L (3.5-5.1); Sodium 143 mmol/L (136-145)
[2019-12-01 05:00] LABS: Bilirubin Negative (Negative); Blood, Urine Negative (Negative); Clarity Clear (Clear); Glucose, Urine (Dipstick) Normal (Negative); Leukocyte Negative Leu/uL (Negative); Nitrite Negative (Negative); Protein, Urine (Dipstick) Negative (Neg-Trace); RBC/HPF 0-3 HPF (0-3); Squamous Epithelial 0-3 HPF (0-3); Urobilinogen Normal mg/dL (Less than 2); WBC/HPF 0-3 HPF (0-3)
[2019-12-01 05:05] LABS: Bacteria/HPF 1+ HPF (None Seen)
[2019-12-01 05:08] LABS: Urine Culture Reflex Yes Yes
[2019-12-01 05:36] LABS: Phosphorus 4.2 mg/dL (2.3-4.7)
[2019-12-01] MEDS ORDERED: Levothyroxine Sodium 100 MCG TAB PO SCH (06:00)
--- NOTE | 2019-12-01 06:56 | RAD ---
CHEST 1 VIEW: Date: 11/30/2019 HISTORY: Chest pain. COMPARISON: Radiograph dated 10/24/2019. FINDINGS: The heart size is enlarged. Mild pulmonary venous congestion and early edema. No pneumothorax. No lar ge effusion. No acute osseous abnormality. IMPRESSION: Mild decompensated congestive heart failure. POS: [facility]
--- NOTE | 2019-12-01 07:45 | ULT ---
Final report by Dr. De La Garza Emergency after-hours study ULTRASOUND DOPPLER DUPLEX VENOUS BILATERAL LOWER EXTREMITIES: DATE: 12/01/2019 1:30 AM HISTORY: Bilateral lower extremity pain and edema in 74-year-old female TECHNIQUE: Grayscale, color-flow, and spectral analysis, of major veins of bilateral lower extremities. FINDINGS: There is demonstration of blood flow with normal compressibility, of the bilateral common femoral, pr ofunda femoral, greater saphenous, femoral, popliteal, and posterior tibial, veins. Agreement with preliminary report by direct radiology IMPRESSION: Negative. No deep venous thrombosis of bilateral lower extremities.
[2019-12-01] MEDS: Dicyclomine 20 MG TAB PO SCH ×2 (08:58→14:13)
[2019-12-01] MEDS ORDERED: Prevnar 13-Val Conj/PF 0.5 ML SYRINGE IM ONE (09:00)
[2019-12-01] MEDS ORDERED: Aspirin 81 mg Enteric Coated Tablet PO SCH (09:00)
[2019-12-01] MEDS ORDERED: Hydrochlorothiazide 25 MG TAB PO SCH (09:00)
--- NOTE | 2019-12-01 12:25 | PDOC.HOSPP ---
- Subjective Encounter Date: 12/01/19 Encounter Time: 09:00 Subjective: States she is no longer having chest pain. Has some congestion and cough she says is always there from allergies. - Objective Vital Signs & Weight: Vital Signs (12 hours) Temp Pulse Resp BP Pulse Ox 12/01/19 08:50 98.4 F 64 16 132/65 97 12/01/19 04:00 97.8 F 63 18 139/62 92 L 12/01/19 00:25 98.8 F 68 16 149/68 H 98 Weight Weight 238 lb 11.2 oz I&O: 11/30/19 12/01/19 12/02/19 06:59 06:59 06:59 Intake Total 668 Balance 668 Result Diagrams: 12/01/19 04:14 12/01/19 04:14 EKG Reviewed by me: Yes Hospitalist ROS - Medication Medications: Active Medications Generic Name Dose Route Start Last Admin Trade Name Freq PRN Reason Stop Dose Admin Acetaminophen 650 mg 12/01/19 01:16 12/01/19 01:50 Tylenol PO 650 mg Q4H PRN Administration Headache/Fever or Pain Aspirin 81 mg 12/01/19 09:00 12/01/19 08:57 Ecotrin PO 81 mg DAILY VOLODYMYR Administration Cholecalciferol 5,000 units 12/01/19 09:00 12/01/19 08:57 Vitamin D3 PO 5,000 units DAILY VOLODYMYR Administration Dicyclomine HCl 20 mg 12/01/19 09:00 12/01/19 08:58 Bentyl PO 20 mg TID VOLODYMYR Administration Hydrochlorothiazide 12.5 mg 12/01/19 09:00 12/01/19 08:58 Hydrochlorothiazide PO 12.5 mg DAILY VOLODYMYR Administration Sodium Chloride 1,000 mls @ 50 mls/hr 11/30/19 23:45 12/01/19 01:50 Normal Saline 0.9% IV 1,000 mls .Q20H VOLODYMYR Administration Levothyroxine Sodium 100 mcg 12/01/19 06:00 12/01/19 05:43 Synthroid PO 100 mcg 0600 VOLODYMYR Administration Pantoprazole Sodium 40 mg 12/01/19 09:00 12/01/19 08:58 Protonix PO 40 mg BID VOLODYMYR Administration - Exam General Appearance: NAD, awake alert Heart: RRR, no murmur, normal peripheral pulses Respiratory: CTAB, no wheezes, no rales, no ronchi Gastrointestinal: soft, non-tender, non-distended, normal bowel sounds Extremities: 1+ LE edema Skin: normal turgor, no lesions, no rashes Neurological: no focal deficits Musculoskeletal - other findings: Able to reproduce chest pain when pushing on sternum Psychiatric: normal affect, normal behavior Hosp A/P (1) CHF (congestive heart failure) Code(s): I50.9 - HEART FAILURE, UNSPECIFIED Status: Acute (2) Chest pain Code(s): R07.9 - CHEST PAIN, UNSPECIFIED Status: Acute Qualifiers: Chest pain type: other chest pain Qualified Code(s): R07.89 - Other chest pain; R07.8 - Other chest pain (3) Asthma Code(s): J45.909 - UNSPECIFIED ASTHMA, UNCOMPLICATED Status: Chronic Qualifiers: Asthma severity: mild Asthma persistence: intermittent (4) GERD (gastroesophageal reflux disease) Code(s): K21.9 - GASTRO-ESOPHAGEAL REFLUX DISEASE WITHOUT ESOPHAGITIS Status: Chronic Qualifiers: Esophagitis presence: esophagitis presence not specified Qualified Code(s) : K21.9 - Gastro-esophageal reflux disease without esophagitis (5) HTN (hypertension) Code(s): I10 - ESSENTIAL (PRIMARY) HYPERTENSION Status: Chronic Qualifiers: Hypertension type: essential hypertension Qualified Code(s): I10 - Essential (primary) hypertension (6) Hypothyroidism Code(s): E03.9 - HYPOTHYROIDISM, UNSPECIFIED Status: Chronic Qualifiers: Hypothyroidism type: unspecified Qualified Code(s): E03.9 - Hypothyroidism , unspecified (7) Obesity Code(s): E66.9 - OBESITY, UNSPECIFIED Status: Chronic Qualifiers: Obesity type: unspecified obesity type Body mass index: BMI 37.0-37.9 - Plan Continue cardiac monitoring Troponins (-) x 3 Venous doppler negative for DVT in bilateral lower extremities Awaiting cardiology consult Currently NPO for cardiology consult GI prophylaxis: Protonix BP managed on current medications, not needing PRN additions at this time
--- NOTE | 2019-12-01 14:41 | CON ---
DATE OF CONSULTATION: REASON FOR CONSULTATION: Chest pain. HISTORY OF PRESENT ILLNESS: Ms. Burgess is a very pleasant 74-year-old woman, who was seen and evaluated in the past. She had a previous history of continued chest pain. She underwent coronary angiography less than one year ago and was found to have mild coronary artery disease. She recently presented with recurrent chest pain. She was having a short burst of pain lasting for several seconds. These were prolonged periods. She states she was lying down when this occurred. No other ameliorating, exacerbating or precipitating factors. Her EKG does not show any acute changes. Her troponins are negative. PAST MEDICAL HISTORY: Chronic venous insufficiency, hypertension, SVT, costochondritis, diastolic dysfunction, sleep apnea, mild CAD, nonsustained VT. PAST SURGICAL HISTORY: Sinus surgery, thyroid surgery, tonsillectomy, hysterectomy, previous vein ablation, left heart catheterization on 08/07/2019 with 30% stenosis of the LAD and right coronary artery. HOME MEDICATIONS: 1. Tramadol. 2. Magnesium. 3. Levothyroxine. 4. Pantoprazole. 5. Amlodipine. 6. Potassium. 7. Vitamin D3. 8. Dicyclomine. 9. Metoprolol. 10. Carafate. 11. Hydrochlorothiazide. 12. Olmesartan. 13. . 14. Tylenol. 15. ProAir. REVIEW OF SYSTEMS: 10-point review of systems is reviewed as above, otherwise negative. PHYSICAL EXAMINATION: GENERAL: Patient is a pleasant female, who is in no acute distress. The patient appears their stated age. VITAL SIGNS: Blood pressure 140/66, pulse 60, and temperature 99. NEUROLOGIC: The patient is alert and oriented x3 with no focal neurologic deficits. HEENT: Sclerae without icterus. Mouth has moist mucous membranes with normal pallor. NECK: No JVD. Carotid upstroke brisk. No bruits bilaterally. LUNGS: Clear to auscultation with unlabored respirations. BACK: No scoliosis or kyphosis. CARDIAC: Regular rate and rhythm with normal S1 and S2. No S3 or S4 noted. No significant rubs, murmurs, thrills, or gallops noted throughout the precordium. PMI is not displaced. There is no parasternal heave. ABDOMEN: Soft, nontender, nondistended. No peritoneal signs present. No hepatosplenomegaly. No abnormal striae. EXTREMITIES: 2+ femoral and 2+ dorsalis pedis pulses. No cyanosis, clubbing, or edema. SKIN: No gross abnormalities. PERTINENT LABORATORY DATA: Hemoglobin 11.8 and creatinine 0.95. Troponin negative. IMPRESSION: Atypical chest pain. RECOMMENDATIONS: Ms. Burgess's symptoms are not typical of angina. Her troponin is negative. Her EKG is within normal limits. She recently underwent coronary angiography and was not found to have significant coronary artery disease. We would seek a noncardiac cause. Her D-dimer was also negative, not suggesting PE. This may be symptoms of costochondritis. From my standpoint, I have no further recommendations. It would be okay from my standpoint to discontinue telemetry monitoring. We will follow up with Ms. Burgess as an outpatient. Job ID: [id number]
[2019-12-01 15:46] VITALS: BP 156/68; TEMP 97.9
[2019-12-01] MEDS ORDERED: Amlodipine 10 MG TAB PO SCH (21:00)
[2019-12-01] MEDS ORDERED: Losartan 25 MG TAB PO SCH (21:00)
--- NOTE | 2019-12-02 15:53 | DIS ---
DATE OF ADMISSION: 11/30/2019 DATE OF DISCHARGE: 12/01/2019 DISCHARGE DISPOSITION AND FOLLOWUP: The patient was discharged home and to follow up with primary care physician, Dr. Vik Mo, within 7 days. The patient was seen and examined on the day of discharge. Denies any new complaints. INPATIENT CONSULTS: Dr. Klein with Cardiology BRIEF CLINICAL COURSE: The patient is a 74-year-old female with a history of CHF, hypertension, asthma, diverticulosis, GERD, and hypothyroidism. She had been having intermittent chest pain since the morning of admission. No precipitating or relieving factors. Denied shortness of breath. She also presented with lower extremity edema and pain. In the hospital, her labs showed troponins negative x3 and she also had a negative venous ultrasound that deminstrated no DVT in her lower extremities. Cardiology saw the patient while here and felt that the pain seemed to be more musculoskeletal than a cardiac issue and cleared her from their perspective. FINAL DIAGNOSES: Costochondritis, congestive heart failure, asthma, gastroesophageal reflux disease, hypertension, hypothyroidism. DISCHARGE MEDICATIONS: 1. Amlodipine 10 mg p.o. at bedtime. 2. Vitamin D3 5000 units p.o. daily. 3. Dicyclomine 20 mg p.o. t.i.d. 4. Hydrochlorothiazide 12.5 mg p.o. daily. 5. Levothyroxine 100 mcg p.o. daily. 6. Magnesium oxide 2 tablets p.o. daily, 200 mg. 7. Metoprolol succinate 25 mg p.o. at bedtime. 8. Nitroglycerin 0.4 mg sublingual q.5 minutes as needed for chest pain. 9. Benicar 20 mg p.o. at bedtime. 10. Protonix 40 mg p.o. b.i.d. 11. Potassium chloride 20 mEq p.o. daily. DISCHARGE INSTRUCTIONS: The patient was educated over costochondritis and using an over the counter antiinflammatory for the next 1 to 2 days to see if it helps relieve symptoms. She is also to follow up with her primary care physician within the next week. TIME SPENT: Total time coordinating the discharge of this patient was 35 minutes. Job ID: [id number] MTDD
--- NOTE | 2019-12-07 16:12 | EKG ---
Test Reason : Blood Pressure : / mmHG Vent. Rate : 074 BPM Atrial Rate : 074 BPM P-R Int : 170 ms QRS Dur : 080 ms QT Int : 378 ms P-R-T Axes : 054 013 037 degrees QTc Int : 419 ms Normal sinus rhythm Anterior infarct , age undetermined Abnormal ECG Confirmed by VI LOYA ([id number]), legal editor GENNY STAUFFER ([id number]) on 12/07/2019 4:11:10 PM Referred By: Confirmed By:VI LOYA
== END 2019-12-01 17:07 | disposition home or self-care (01) ==
LOC: ERS 20:56 → 2NO 23:33
PROVIDERS: ADMIT Hospitalist; ATTEND Hospitalist
DX: M94.0 Chondrocostal junction syndrome [Tietze] (principal); I11.0 Hypertensive heart disease with heart failure; I50.9 Heart failure, unspecified; I25.10 Atherosclerotic heart disease of native coronary artery without angina pectoris; J45.909 Unspecified asthma, uncomplicated; K21.9 Gastro-esophageal reflux disease without esophagitis; E89.0 Postprocedural hypothyroidism; E66.9 Obesity, unspecified; Z68.37 Body mass index [BMI] 37.0-37.9, adult; Z79.899 Other long term (current) drug therapy; Z88.5 Allergy status to narcotic agent
CPT/HCPCS: 71045; 80048; 81001; 83605; 83735; 84100; 84145; 84484 ×3; 85025; 85379; 87086; 93005; 93970; 94760 ×2; 96360; 96361; 97139; 99285; G0378 ×2; 36415; 80053; 84443

== ENCOUNTER 2019-12-22 09:41 | Outpatient (CLI) | payer MEDICARE, BC ==
--- NOTE | 2019-12-22 12:43 | BD ---
DEXA BONE DENSITY SCAN: DATE: 12/22/2019. HISTORY: Postmenopausal female undergoing screening for osteoporosis. FINDINGS: Lumbar Spine: BMD (g/cm2) L1 0.743 T-Score: -2.2 L2 0.819 T-Score: -1.9 L3 0.992 T-Score: -0.8 L4 1.145 T-Score: 0.8 L1-L4 0.938 T-Score: -1.0 Right: Femoral Neck: 0.717 T-Score: -1.2 Total Femur: 0.824 T-Score: -1.0 Left: Femoral Neck: 0.784 T-Score: -0.6 Total Femur: 0.882 T-Score: -0.5 FRAX-WHO fracture risk assessment tool reports a 10-year fracture risk in an untreated patient at 3.6 -4.2% for a major osteoporotic and 0.4-0.7% for a hip fracture. Impression: Normal lumbar spine bone mineral density. There is osteopenia within the femoral neck on the right c orrelating with a moderately increased risk for fracture. POS: ANUP
== END 2019-12-22 09:42 | disposition home or self-care (01) ==
LOC: BICMAMMO 09:41
PROVIDERS: ATTEND Internal Medicine Rheumatology
DX: M81.0 Age-related osteoporosis without current pathological fracture (principal); M85.89 Other specified disorders of bone density and structure, multiple sites
CPT/HCPCS: 77080

== ENCOUNTER 2020-01-10 09:41 | Outpatient (CLI) | payer MEDICARE ==
--- NOTE | 2020-01-10 11:48 | MMO ---
Bilateral MAMMO Bilat Screen [facility]. CLINICAL HISTORY: Patient is 74 years old and is seen for screening. The patient has the following family history of breast cancer: mother, at age 83. The patient has no personal history of cancer. The patient has a history of bilateral Cyst Aspiration in ? - benign. VIEWS: The views performed were: bilateral craniocaudal with tomosynthesis and bilateral mediolateral oblique with tomosynthesis. FILMS COMPARED: The present examination has been compared to prior imaging studies performed at [facility] on 07/01/2010, 11/11/2011, 12/16/2012 and 11/28/2018. This study has been interpreted with the assistance of computer-aided detection. MAMMOGRAM FINDINGS: There are scattered fibroglandular densities. Benign calcifications are noted bilaterally. Nodularity is stable. There are no suspicious masses, suspicious calcifications, or new areas of architectural distortion. IMPRESSION: THERE IS NO MAMMOGRAPHIC EVIDENCE OF MALIGNANCY. A ROUTINE FOLLOW-UP MAMMOGRAM IN 1 YEAR IS RECOMMENDED. THE RESULTS OF THIS EXAM WERE SENT TO THE PATIENT. ACR BI-RADS Category 2 - Benign finding MAMMOGRAPHY NOTE: 1. A negative mammogram report should not delay a biopsy if a dominant of clinically suspicious mass is present. 2. Approximately 10% to 15% of breast cancers are not detected by mammography. 3. Adenosis and dense breasts may obscure an underlying neoplasm. Reported by: SYEDA RUTH MD Electonically Signed: [id number]
== END 2020-01-10 09:42 | disposition home or self-care (01) ==
LOC: BICMAMMO 09:41
PROVIDERS: ATTEND Internal Medicine
DX: Z12.31 Encounter for screening mammogram for malignant neoplasm of breast (principal); Z80.3 Family history of malignant neoplasm of breast
CPT/HCPCS: 77063; 77067

== ENCOUNTER 2021-07-01 12:12 | Outpatient (CLI) | payer MEDICARE | END 2021-07-01 12:13 | disposition home or self-care (01) | LOC: BICULT 12:12 | PROVIDERS: ATTEND Otolaryngology Plastic Surgery within the Head & Neck | DX: E04.1 Nontoxic single thyroid nodule (principal); R13.13 Dysphagia, pharyngeal phase | CPT/HCPCS: 76536 ==

== ENCOUNTER 2021-07-10 09:52 | Outpatient (CLI) | payer MEDICARE | END 2021-07-10 09:53 | disposition home or self-care (01) | LOC: RAD 09:52 | PROVIDERS: ATTEND Otolaryngology Plastic Surgery within the Head & Neck | DX: R13.10 Dysphagia, unspecified (principal); K44.9 Diaphragmatic hernia without obstruction or gangrene; K22.5 Diverticulum of esophagus, acquired | CPT/HCPCS: 74220 ==

== ENCOUNTER 2021-08-21 09:00 | Outpatient (CLI) | payer MEDICARE ==
[2021-08-21 10:43] LABS: Hemoglobin 11.6 g/dL (12.0-15.5); Mean Corpuscular HGB CONC 29.9 g/dL (32.0-36.0); Mean Corpuscular Hemoglobin 24.3 pg (27.0-33.0); Mean Corpuscular Volume 81.3 fl (81.6-98.3); Mean Platelet Volume 10.3 fl (7.4-10.4); Platelet Count 347 10x3/uL (150-450); RBC Distribution Width 15.8 % (11.5-14.5); Red Blood Cell (RBC) Count 4.77 10x6/uL (3.90-5.03); White Blood Cell (WBC) Count 5.2 10x3/uL (3.5-10.5)
[2021-08-21 10:52] LABS: Prothrombin Time 11.4 sec (9.5-12.1)
[2021-08-21 11:04] LABS: Anion Gap 14 mmol/L (10-20); BUN (Urea Nitrogen) 17 mg/dL (9.8-20.1); Calc. Creatinine Clearance 0 mL/min (70-130); Carbon Dioxide 29 mmol/L (23-31); Chloride 105 mmol/L (98-107); Glucose 84 mg/dL (83-110); Potassium 4.2 mmol/L (3.5-5.1); Sodium 144 mmol/L (136-145)
[2021-08-22 09:12] LABS: SARS-CoV-2 PCR by NAA Not Detected (NotDetected)
== END 2021-08-21 09:01 | disposition home or self-care (01) ==
LOC: LABBT 09:00
PROVIDERS: ATTEND Urology
DX: Z01.818 Encounter for other preprocedural examination (principal); N35.92 Unspecified urethral stricture, female; R31.21 Asymptomatic microscopic hematuria; Z20.822 Contact with and (suspected) exposure to COVID-19
CPT/HCPCS: 80048; 85027; 85610; 85730; 87086; 93005; U0003; U0005; 93010

== ENCOUNTER 2021-08-26 09:27 | Day surgery (SDC) | payer MEDICARE ==
[2021-08-20 11:17] VITALS: BMI 37.5
[2021-08-26] MEDS ORDERED: Lidocaine 1% MPF 2 ML VIAL ONE (09:59)
[2021-08-26] MEDS ORDERED: Levofloxacin 500 mg/D5W 100 ml Premix Bag ONE (11:12)
[2021-08-26] MEDS ORDERED: Fentanyl 100 MCG/2 ML VIAL ONE ×2 (11:12→12:08)
[2021-08-26] MEDS ORDERED: Dexamethasone 20 MG/5 ML VIAL ONE (11:18)
[2021-08-26] MEDS ORDERED: PROPOFOL 200 MG/20 ML VIAL ONE (11:18)
[2021-08-26] MEDS ORDERED: PHENYLEPHRINE-NS 100 MCG/ML 10 ML SYRINGE ONE (11:18)
[2021-08-26] MEDS ORDERED: Lidocaine 1% PF 5 ML VIAL ONE (11:18)
[2021-08-26] MEDS ORDERED: Ondansetron PF 4 MG/2 ML Vial ONE (11:18)
== END 2021-08-26 13:50 | disposition home or self-care (01) ==
LOC: SDC 09:27
PROVIDERS: ATTEND Urology
PROC: 0T7D8ZZ Dilation of Urethra, Via Natural or Artificial Opening Endoscopic (ICD-10-PCS; principal; 2021-08-26)
PROC: BT14ZZZ Fluoroscopy of Kidneys, Ureters and Bladder (ICD-10-PCS; 2021-08-26)
DX: N35.92 Unspecified urethral stricture, female (principal); R31.21 Asymptomatic microscopic hematuria; G47.33 Obstructive sleep apnea (adult) (pediatric); E03.9 Hypothyroidism, unspecified; K21.9 Gastro-esophageal reflux disease without esophagitis; M19.90 Unspecified osteoarthritis, unspecified site; I10 Essential (primary) hypertension; Z79.899 Other long term (current) drug therapy; Z88.5 Allergy status to narcotic agent
CPT/HCPCS: 74420; J1956; J3010

== ENCOUNTER 2022-02-11 14:20 | Emergency (ER) | payer MEDICARE | END 2022-02-11 15:10 | disposition home or self-care (01) | LOC: ERS 14:20 | DX: I48.91 Unspecified atrial fibrillation (principal) | CPT/HCPCS: 93005 ==

== ENCOUNTER 2023-01-18 19:30 | Outpatient (CLI) | payer MEDICARE | END 2023-01-18 19:31 | disposition home or self-care (01) | LOC: SLEEPLAB 19:30 | PROVIDERS: ATTEND Internal Medicine Critical Care Medicine | DX: G47.33 Obstructive sleep apnea (adult) (pediatric) (principal); R06.83 Snoring; E66.9 Obesity, unspecified; G47.10 Hypersomnia, unspecified; Z68.38 Body mass index [BMI] 38.0-38.9, adult | CPT/HCPCS: 95811 ==

== ENCOUNTER 2025-05-01 11:14 | Outpatient (CLI) | payer MEDICARE ==
[2025-05-01 12:15] LABS: #Basophils 0.03 10x3/uL (0.0-0.2); #Eosinophils 0.17 10x3/uL (0.0-0.7); #Monocytes 0.69 10x3/uL (0.11-0.59); #Neutrophils 4.15 10x3/uL (1.40-6.50); %Basophils 0.4 % (0.0-1.0); %Eosinophils 2.3 % (0.0-10.0); %Lymphocytes 30.5 % (21.0-51.0); %Monocytes 9.5 % (0.0-10.0); %Neutrophils 56.9 % (42.0-75.0); Hematocrit 35.3 % (36.0-47.0); Hemoglobin 10.7 g/dL (12.0-16.0); Mean Corpuscular Hemoglobin 26.0 pg (27.0-31.0); Mean Corpuscular Volume 85.9 fL (78.0-98.0); Platelet Count 306 10x3/uL (130-400); Red Blood Cell (RBC) Count 4.11 mill/uL (4.20-5.40); White Blood Cell (WBC) Count 7.29 10x3/uL (4.8-10.8)
[2025-05-01 12:30] LABS: INR-International Normal Ratio 1.1; PTT 31.6 sec (22.9-36.1); Prothrombin Time 14.1 sec (12.0-14.7)
[2025-05-01 12:39] LABS: Anion Gap 16 mmol/L (10-20); BUN (Urea Nitrogen) 34 mg/dL (9.8-20.1); Calc. Creatinine Clearance 0 mL/min (70-130); Calcium 9.5 mg/dL (7.8-10.44); Carbon Dioxide 25 mmol/L (23-31); Chloride 107 mmol/L (98-107); Glucose 90 mg/dL (83-110); Potassium 4.5 mmol/L (3.5-5.1); Sodium 143 mmol/L (136-145)
== END 2025-05-01 11:15 | disposition home or self-care (01) ==
LOC: LABBT 11:14
PROVIDERS: ATTEND Urology
DX: Z01.818 Encounter for other preprocedural examination (principal); N99.12 Postprocedural urethral stricture, female
CPT/HCPCS: 80048; 85025; 85610; 85730; 93005; 93010

== ENCOUNTER 2025-05-07 06:45 | Day surgery (SDC) | payer MEDICARE ==
[2025-05-01 16:27] VITALS: BMI 39.1
[2025-05-07] MEDS ORDERED: LevoFLOXacin D5W 500 mg (100 mL) BAG ONE (08:04)
[2025-05-07] MEDS ORDERED: PROPOFOL 20 ML ONE (08:19)
[2025-05-07] MEDS ORDERED: Lidocaine 1% PF 5 ML VIAL ONE (08:22)
[2025-05-07] MEDS ORDERED: Ondansetron PF 4 MG/2 ML Vial ONE (08:23)
[2025-05-07] MEDS ORDERED: Glycopyrrolate 0.2 MG/ML 5 ML SYRINGE ONE (08:37)
[2025-05-07] MEDS ORDERED: Acetaminophen 500 MG TAB ONE (10:19)
== END 2025-05-07 12:13 | disposition home or self-care (01) ==
LOC: SDC 06:45
PROVIDERS: ATTEND Urology
PROC: 0T7D8ZZ Dilation of Urethra, Via Natural or Artificial Opening Endoscopic (ICD-10-PCS; principal; 2025-05-07)
DX: N35.92 Unspecified urethral stricture, female (principal); I10 Essential (primary) hypertension; E03.9 Hypothyroidism, unspecified; K21.9 Gastro-esophageal reflux disease without esophagitis; J45.909 Unspecified asthma, uncomplicated; Z96.653 Presence of artificial knee joint, bilateral; Z96.1 Presence of intraocular lens; Z90.710 Acquired absence of both cervix and uterus; Z90.89 Acquired absence of other organs; Z88.5 Allergy status to narcotic agent; Z79.51 Long term (current) use of inhaled steroids; Z79.899 Other long term (current) drug therapy
CPT/HCPCS: 52276; J1100; J1956; J2704; J3010; Q9967